=== PATIENT | female | born 1935 | race Caucasian/White ===

== ENCOUNTER 2018-11-15 16:10 | Emergency (ER) | payer MEDICARE, OTHER ==
[2018-11-15] MEDS: IPRATROPIUM (NEB) 0.5 MG/2.5 ML AMP INH (18:25)
[2018-11-15] MEDS: ALBUTEROL 0.5% (NEB) 2.5 MG/0.5 ML AMP INH (18:25)
[2018-11-15 18:43] LABS: ADD MAN DIFF? NO
[2018-11-15] MEDS: AZITHROMYCIN 500MG/NS (PMX) 250 ML IV (18:44)
[2018-11-15] MEDS: DEXAMETHASONE 10 MG/ML 1 ML INJ IV (18:44)
[2018-11-15 18:45] LABS: WHITE BLOOD COUNT 8.3 10^3/ul (4.8-10.8)
[2018-11-15 18:45] LABS: BASOPHIL # 0.1 10^3/ul (0.0-0.1); BASOPHILS % 0.6 % (0.0-2.0); EOSINOPHILS # 1.5 10^3/ul (0.0-0.5); EOSINOPHILS % 17.6 % (0.0-7.0); HEMATOCRIT 40.6 % (37.0-47.0); HEMOGLOBIN 13.2 g/dl (12.0-16.0); LYMPHOCYTES # 2.1 10^3/ul (0.8-2.9); LYMPHOCYTES % 24.7 % (15.0-51.0); MEAN CORPUSCULAR HEMOGLOBIN 28.6 pg (29.0-33.0); MEAN CORPUSCULAR HGB CONC 32.5 g/dl (32.0-37.0); MEAN CORPUSCULAR VOLUME 88.1 fl (82.0-101.0); MEAN PLATELET VOLUME 9.7 fl (7.4-10.4); MONOCYTE # 0.6 10^3/ul (0.3-0.9); MONOCYTES % 7.2 % (0.0-11.0); NEUTROPHIL # 4.1 10^3/ul (1.6-7.5); NEUTROPHILS % 49.7 % (39.0-77.0); PLATELET COUNT 189 10^3/UL (140-415); RED BLOOD COUNT 4.61 10^6/ul (4.20-5.40); RED CELL DISTRIBUTION WIDTH 13.6 % (11.5-14.5)
[2018-11-15 18:58] LABS: INR 0.92; PROTIME 12.5 Sec (11.9-14.9)
[2018-11-15 18:59] LABS: PARTIAL THROMBOPLASTIN TIME 29.6 Sec (23.0-35.0)
[2018-11-15 19:01] LABS: ANION GAP 13 (5-13); BLOOD UREA NITROGEN 20 mg/dl (7-20); CARBON DIOXIDE 26 mmol/L (21-31); CHLORIDE 103 mmol/L (97-110); CREATININE 0.78 mg/dl (0.44-1.00); GLUCOSE 158 mg/dl (70-220); POTASSIUM 4.3 mmol/L (3.5-5.1); SODIUM 142 mmol/L (135-144)
[2018-11-15 19:13] LABS: B-TYPE NATRIURETIC PEPTIDE 100 PG/ML (0-450); TROPONIN-I < 0.012 ng/ml (0.000-0.120)
== END 2018-11-15 20:32 | disposition home or self-care (01) ==
LOC: E/R 16:10
DX: J45.901 Unspecified asthma with (acute) exacerbation (principal); I10 Essential (primary) hypertension; Z79.84 Long term (current) use of oral hypoglycemic drugs
CPT/HCPCS: 36415; 71045; 80048; 83605; 83880; 84484; 85025; 85610; 85730; 93005; 94644; 96374; 96375; 99285-25